=== PATIENT | female | born 2000 | race Caucasian/White ===

== ENCOUNTER 2020-11-15 08:53 | Outpatient (REF) | payer BC, SELFPAY ==
[2020-11-15 11:19] LABS: MANUAL DIFF FLAG NO
[2020-11-15 11:37] LABS: Basophils Absolute Auto 0.1 X10*3/uL (0.0-0.2); Basophils Percent Auto 0.6 % (0-2); Eosinophils Absolute Auto 0.1 X10*3/uL (0.0-0.4); Eosinophils Percent Auto 0.8 % (0-4); Hematocrit 44.3 % (37-47); Hemoglobin 14.4 g/dl (12.0-16.0); Imm Gran Abs Auto 0.03 X10*3/uL (0.00-0.03); Imm Gran Pct Auto 0.3 % (0.0-0.4); Lymphocytes Absolute Auto 2.3 X10*3/uL (1.2-4.9); Mean Corpuscular HGB Conc 32.5 g/dl (31.0-35.0); Mean Corpuscular Hemoglobin 29.5 pg (27.0-33.0); Mean Corpuscular Volume 90.8 fL (80-98); Mean Platelet Volume 10.3 fL (9.4-12.3); Monocytes Absolute Auto 0.7 X10*3/uL (0.1-1.2); Neutrophils Absolute Auto 5.8 X10*3/uL (2.0-8.3); Neutrophils Percent Auto 64.3 % (45-73); Platelet Count 331 X10*3/uL (160-400); Red Blood Count 4.88 X10*6/uL (4.20-5.50); Red Cell Distribution Width 12.2 % (11.0-16.0)
[2020-11-15 12:06] LABS: Alanine Aminotransferase 19 U/L (0-31); Albumin Level 4.4 g/dL (3.5-5.0); Alkaline Phosphatase 51 U/L (39-117); Anion Gap 13 (12-20); Aspartate Amino Transferase 15 U/L (5-31); Bilirubin Total 0.2 mg/dL (0.0-1.0); Blood Urea Nitrogen 10 mg/dL (9-16); Calcium 9.2 mg/dL (8.4-10.2); Carbon Dioxide 28 mmol/L (22-29); Chloride 104 mmol/L (96-108); Cholesterol 212 mg/dL; Estimated Glomerular Filt Rate > 60; Glucose Fasting 80 mg/dL (60-99); HDL Cholesterol 36 mg/dL; LDL Cholesterol Calculated 144 mg/dl; Potassium 4.9 mmol/L (3.3-5.1); Sodium 140 mmol/L (135-145); Triglycerides 161 mg/dL
[2020-11-15 12:13] LABS: TSH reflex Free T4 1.03 uIU/mL (0.32-4.0)
== END 2020-11-15 08:54 | disposition home or self-care (01) ==
LOC: HO.HMGCLDS 08:53
PROVIDERS: PCP Internal Medicine; Visit Provider Internal Medicine
DX: Z00.01 Encounter for general adult medical examination with abnormal findings (principal); E66.9 Obesity, unspecified
CPT/HCPCS: 36415; 80053; 80061; 84443; 85025

== ENCOUNTER 2021-05-23 14:01 | Outpatient (REF) | payer BC, SELFPAY | END 2021-05-23 14:02 | disposition home or self-care (01) | LOC: HO.LNP 14:01 | PROVIDERS: Visit Provider Physician Assistant | DX: Z20.822 Contact with and (suspected) exposure to COVID-19 (principal); J01.10 Acute frontal sinusitis, unspecified | CPT/HCPCS: U0003; U0005 ==

== ENCOUNTER 2022-12-16 13:00 | Outpatient (REF) | payer BC, SELFPAY ==
[2022-12-16 14:24] LABS: Hematocrit 42.5 % (37.0-47.0); Hemoglobin 13.7 g/dl (12.0-16.0); Mean Corpuscular HGB Conc 32.2 g/dl (31.0-35.0); Mean Corpuscular Hemoglobin 28.6 pg (27.0-33.0); Mean Corpuscular Volume 88.7 fL (80.0-98.0); Mean Platelet Volume 10.3 fL (9.4-12.3); Platelet Count 367 X10*3/uL (160-400); Red Blood Count 4.79 X10*6/uL (4.20-5.50); Red Cell Distribution Width 12.3 % (11.0-16.0); White Blood Count 26.4 X10*3/uL (4.8-10.8)
[2022-12-16 15:02] LABS: Alanine Aminotransferase 11 U/L (0-31); Albumin Level 4.5 g/dL (3.5-5.0); Alkaline Phosphatase 57 U/L (39-117); Anion Gap 14 (12-20); Aspartate Amino Transferase 12 U/L (5-31); Bilirubin Direct 0.2 mg/dL (0.0-0.5); Bilirubin Total 0.8 mg/dL (0.0-1.0); Blood Urea Nitrogen 8 mg/dL (9-16); Calcium 9.6 mg/dL (8.4-10.2); Carbon Dioxide 27 mmol/L (22-29); Chloride 102 mmol/L (96-108); Estimated Glomerular Filt Rate > 60; Glucose Random 113 mg/dL (60-115); Potassium 4.4 mmol/L (3.3-5.1); Sodium 139 mmol/L (135-145); Total Protein 7.4 g/dL (6.5-8.0)
[2022-12-16 15:10] LABS: Influenza A PCR NEGATIVE (Negative); Influenza B PCR NEGATIVE (Negative); Resp Syncy Virus RNA Qual PCR NEGATIVE (Negative); SARS COV2 PCR INHOUSE NEGATIVE (Negative)
[2022-12-16 16:14] LABS: Erythrocyte Sedimentation Rate 59 MM/HR (0-20)
== END 2022-12-16 13:01 | disposition home or self-care (01) ==
LOC: HO.HMGCLDS 13:00
PROVIDERS: Visit Provider Internal Medicine
DX: Z20.822 Contact with and (suspected) exposure to COVID-19 (principal); R50.9 Fever, unspecified
CPT/HCPCS: 0241U; 36415; 80048; 80076; 85027; 85652

== ENCOUNTER 2022-12-18 12:59 | Outpatient (REF) | payer BC, SELFPAY ==
[2022-12-18 14:13] LABS: Hematocrit 38.4 % (37.0-47.0); Hemoglobin 12.4 g/dl (12.0-16.0); Mean Corpuscular HGB Conc 32.3 g/dl (31.0-35.0); Mean Corpuscular Hemoglobin 28.8 pg (27.0-33.0); Mean Corpuscular Volume 89.1 fL (80.0-98.0); Mean Platelet Volume 10.2 fL (9.4-12.3); Platelet Count 339 X10*3/uL (160-400); Red Blood Count 4.31 X10*6/uL (4.20-5.50); Red Cell Distribution Width 12.4 % (11.0-16.0); White Blood Count 11.9 X10*3/uL (4.8-10.8)
[2022-12-18 14:30] LABS: Anion Gap 15 (12-20); Blood Urea Nitrogen 10 mg/dL (9-16); Calcium 9.2 mg/dL (8.4-10.2); Carbon Dioxide 27 mmol/L (22-29); Chloride 103 mmol/L (96-108); Estimated Glomerular Filt Rate > 60; Glucose Random 109 mg/dL (60-115); Potassium 4.7 mmol/L (3.3-5.1); Sodium 140 mmol/L (135-145)
[2022-12-18 15:02] LABS: Erythrocyte Sedimentation Rate 81 MM/HR (0-20)
== END 2022-12-18 13:00 | disposition home or self-care (01) ==
LOC: HO.HMGCLDS 12:59
PROVIDERS: PCP Internal Medicine; Visit Provider Internal Medicine
DX: R50.9 Fever, unspecified (principal)
CPT/HCPCS: 36415; 80048; 85027; 85652

== ENCOUNTER 2024-02-22 11:25 | Outpatient (AMB) | payer BC, SELFPAY ==
[2024-02-22 11:30] VITALS: BP 138/74; PULSE 75; O2SAT 98; BMI 34.0
--- NOTE | 2024-02-22 11:30 | MHC.PC.OV ---
Vital Signs 02/22/24 11:30 Height 5 ft 3 in Weight 192 lb 2 oz BMI 34.0 BP 138/74 Blood Pressure Location Rt brachial Position Sitting Pulse 75 Pulse Source Pulse Oximeter Pulse Oximetry (%) 98 Oxygen Delivery Method Room Air Intake Visit Reasons: Annual PE Allergies No Known Allergies Allergy (Verified 02/22/24 11:31) Medication List - Last Reconciled 02/22/24 by Carline Pablo MD No Known Home Meds Tobacco use date assessed: 02/22/24 Dental Screening Dental Screen Date: 02/22/24 Did you have a dental visit in the last 12 months?: Yes Did you have a dental problem in the last 6 months where you did not have access to dental care?: No Was dental information given to patient?: Patient has dentist HPI Annual PE HPI Details Patient is 23-year-old female came in today for physical examination She is suffering from constipation alternating with diarrhea She says that out of 14 days 10 days she has pain when she move her bowels And she has also noticed that her stools are ribbon like now Patient would like to have referral to gastroenterology which I have placed for the patient to be seen urgently Lab order placed to be done fasting She already have OBGYN at [facility] Patient is trying to lose weight as well PFSH Family History Father Diabetes Mother Diabetes Cancer Paternal Grandmother Cancer Social History Housing: House Alcohol intake: current Alcohol intake frequency: a few times a month Patient Tobacco Use Status: Never used Tobacco e-Cigarette/Vaping Use: Never Used Current occupational status: employed Cognitive needs: No Hearing needs: No Vision needs: No Questionnaire PHQ-9 Over the last 2 weeks, how often have you been bothered by any of the following problems? 1. Little interest or pleasure in doing things: several days 2. Feeling down, depressed, or hopeless: not at all 3. Trouble falling or staying asleep, or sleeping too much: not at all 4. Feeling tired or having little energy: several days 5. Poor appetite or overeating: nearly every day 6. Feeling bad about yourself - or that you are a failure or have let yourself or your family down: not at all 7. Trouble concentrating on things, such as reading the newspaper or watching television: several days 8. Moving or speaking so slowly that other people could have noticed. Or the opposite - being so fidgety or restless that you have been moving around a lot more than usual: not at all 9. Thoughts that you would be better off or of hurting yourself in some way: not at all Total score: 6 Depression Screening Interpretation: Negative Depression Screening Done: Yes 46731 - PHQ-9 Billing: Yes Source: Developed by Drs. Nic Hernandez, Renetta Thomas, Jason Hamilton and colleagues, with an educational yolie from [employer]. Thrive Questionnaire Date Thrive assessed: 02/22/24 I am a: Patient What is your living situation today?: I have a steady place to live Within the past 12 months, did the food you bought not last and you didn't have the money to get more?: Never true Within the past 12 months, did you worry whether your food would run out before you got money to buy more?: Never true Do you have trouble paying for medicines?: No Do you have trouble getting transportation to medical appointments?: No Do you have trouble paying your heating and electricity bill?: No Do you have trouble taking care of your child, family member or friend?: No Do you have trouble with day-to-day activities such as bathing, preparing meals, shopping, managing finances, etc.?: No Are you currently unemployed and looking for a job?: No Are you interested in more education?: Yes Please select the resources that you would like help with: None Currently or been in a relationship where the following occur: No concerns reported THRIVE Score: 0 AUDIT C Alcohol Use Questionnaire (AUDIT-C) 1. How often do you have a drink containing alcohol?: 2-3 times a week 2. How many drinks containing alcohol do you have on a typical day when you are drinking?: 5 or 6 3. How often do you have six or more drinks on one occasion?: Weekly Total Score: 8 Score Reviewed/Action Taken: No (Patient left before we chance to talk about that) SAMANTHA-7 AMB Questionnaire SAMANTHA-7 Date SAMANTHA - 7 assessed: 02/22/24 Feeling nervous, anxious, or on edge: 3 = Nearly every day Not being able to stop or control worryin = Nearly every day Worrying too much about different things: 1 = Several days Trouble relaxin = More than half the days Being so restless that it is hard to sit still: 0 = Not at all Becoming easily annoyed or irritable: 1 = Several days Feeling afraid as if something awful might happen: 2 = More than half the days Total SAMANTHA-7 score (0-4 normal; 5-9 mild; 10-14 moderate; 15-21 severe): 12 Source: Developed by Drs. Nic Hernandez, Renetta Thomas, Jason Hamilton and colleagues, with an educational yolie from [employer]. SAMANTHA-7 Assessment Billing SAMANTHA-7 Assessment Tool: SAMANHTA-7 Assessment 78340 Review of Systems Const Denies chills, Denies fever(s) and Denies headache(s) Eyes Denies blurry vision ENT Denies headache(s), Denies nasal discharge, Denies nasal obstruction, Denies odynophagia and Denies sinus pain Card Denies chest pain at rest and Denies chest pain with activity Resp Denies cough and Denies hemoptysis GI Denies odynophagia, Denies vomiting and Denies hematemesis Reports as per HPI Musc Denies abnormal gait Skin/Breast Reports as per HPI Neuro Denies Neuro-related abnormal movements, Denies Abnormal speech present, Denies abnormal gait, Denies headache(s) and Denies Sensory deficit (Neuro) Psych Denies mood swings and Denies paranoia Endo Reports as per HPI Kyle/Lymph Reports as per HPI Aller/Immun Reports as per HPI Physical exam (Primary Care) Vital Signs: Last Vital Signs Pulse 75 02/22/24 11:30 BP 138/74 02/22/24 11:30 Pulse Ox 98 02/22/24 11:30 Oxygen Delivery Method Room Air 02/22/24 11:30 BMI result Body Mass Index 34.0 Tobacco/Smoking Status: Tobacco use Status Tobacco use date assessed 02/22/24 02/22/24 11:31 Patient Tobacco Use Status Never used Tobacco 02/22/24 11:31 e-Cigarette/Vaping Use Never Used 02/22/24 11:31 PHQ-9: PHQ-9 Score PHQ-9: Total score 6 02/22/24 12:14 Depression Screening Interpretation: Negative Thrive Assessment: Date of Thrive Assessment Date Thrive assessed 02/22/24 02/22/24 12:14 Currently or been in a relationship where the following occur: No concerns reported Const General: cooperative, comfortable and no acute distress Orientation/consciousness: patient oriented x3 HENMT Head: Yes normocephalic and Yes atraumatic Eyes General: appearance normal, both eyes and all related structures Pupils: Equal, round and reactive pupils present EOM: EOMs intact bilaterally Neck Neck: Yes supple and No lymphadenopathy Thyroid: Thyroid normal Lymphatic: no lymphadenopathy noted Resp Effort & Inspection: normal respiratory effort and able to speak in complete sentences Auscultation: clear to auscultation bilaterally Cardio Heart sounds: S1 normal heart sound present and S2 normal heart sound present GI Palpation (GI): Soft to palpation and nontender Auscultation: normal bowel sounds General: Yes no CVA tenderness Back/Spine/Pelvis Back: no CVA tenderness Skin General skin exam: elasticity normal and turgor normal Neuro General: patient oriented x3 and gait normal Cranial nerves: Yes Equal, round and reactive pupils present Speech: No Abnormal speech present Sensory Exam: No Sensory deficit (Neuro) Coordination: tandem gait normal and Romberg test negative Extrem General: Yes normal exam except as noted and No edema Assessment and Plan Assessment & Plan (1) Encounter for general adult medical examination with abnormal findings: Code(s): Z00.01 - Encounter for general adult medical examination with abnormal findings (2) Change in stool caliber: Code(s): R19.5 - Other fecal abnormalities (3) Obesity (BMI 30.0-34.9): Code(s): E66.9 - Obesity, unspecified (4) Leukocytosis: Code(s): D72.829 - Elevated white blood cell count, unspecified Qualifiers: Leukocytosis type: unspecified Qualified Code(s): D72.829 - Elevated white blood cell count, unspecified Plan Patient is 23-year-old female came in today for physical examination She is suffering from constipation alternating with diarrhea She says that out of 14 days 10 days she has pain when she move her bowels And she has also noticed that her stools are ribbon like now Patient would like to have referral to gastroenterology which I have placed for the patient to be seen urgently Lab order placed to be done fasting , last time she had labs her white count was elevated She already have OBGYN at [facility] Patient is trying to lose weight as well Orders: Orders Complete Blood Count Auto Diff Today D72.829 - Elevated white blood cell count, unspecified, E66.9 - Obesity, unspecified, Z00.01 - Encounter for general adult medical examination with abnormal findings Comprehensive [employer]. Panel Fast Today D72.829 - Elevated white blood cell count, unspecified, E66.9 - Obesity, unspecified, Z00.01 - Encounter for general adult medical examination with abnormal findings Lipid Panel Today D72.829 - Elevated white blood cell count, unspecified, E66.9 - Obesity, unspecified, Z00.01 - Encounter for general adult medical examination with abnormal findings Vitamin D 25-OH (D2 and D3) Today D72.829 - Elevated white blood cell count, unspecified, E66.9 - Obesity, unspecified, Z00.01 - Encounter for general adult medical examination with abnormal findings TSH reflex Free T4 Today D72.829 - Elevated white blood cell count, unspecified, E66.9 - Obesity, unspecified, Z00.01 - Encounter for general adult medical examination with abnormal findings Referrals Gastroenterology Referral R19.5 - Other fecal abnormalities Coding Level of Care Code Est Pt Level 3 (48495) Est Pt Prev Care 18-39y(66067) Diagnoses Encounter for general adult medical examination with abnormal findings Z00.01 Change in stool caliber R19.5 Obesity (BMI 30.0-34.9) E66.9 Leukocytosis, unspecified type D72.829 Leukocytosis type: unspecified Additional Codes SAMANTHA-7 Assessment Billing - SAMANTHA-7 Assessment Tool: SAMANTHA-7 Assessment 29779 ([id number])
== END 2024-02-22 11:53 | disposition home or self-care (01) ==
PROVIDERS: PCP Internal Medicine; Visit Provider Internal Medicine
DX: Z00.01 Encounter for general adult medical examination with abnormal findings (principal); R19.5 Other fecal abnormalities; Z68.34 Body mass index [BMI] 34.0-34.9, adult; E66.9 Obesity, unspecified; D72.829 Elevated white blood cell count, unspecified
CPT/HCPCS: 99213; 99395

== ENCOUNTER 2024-04-13 07:09 | Outpatient (REF) | payer SELFPAY ==
[2024-04-13 10:01] LABS: MANUAL DIFF FLAG NO
[2024-04-13 10:04] LABS: Basophils Percent Auto 0.5 % (0-2); Eosinophils Absolute Auto 0.1 X10*3/uL (0.0-0.4); Hematocrit 41.4 % (37.0-47.0); Hemoglobin 13.8 g/dl (12.0-16.0); Imm Gran Abs Auto 0.03 X10*3/uL (0.00-0.03); Imm Gran Pct Auto 0.4 % (0.0-0.4); Lymphocytes Absolute Auto 2.8 X10*3/uL (1.2-4.9); Lymphocytes Percent Auto 36.4 % (20-40); Mean Corpuscular HGB Conc 33.3 g/dl (31.0-35.0); Mean Corpuscular Hemoglobin 29.4 pg (27.0-33.0); Mean Corpuscular Volume 88.1 fL (80.0-98.0); Mean Platelet Volume 10.3 fL (9.4-12.3); Monocytes Absolute Auto 0.6 X10*3/uL (0.1-1.2); Monocytes Percent Auto 7.9 % (2-11); Neutrophils Absolute Auto 4.2 x10*3/uL (2.0-8.3); Neutrophils Percent Auto 53.8 % (45-73); Platelet Count 318 X10*3/uL (160-400); Red Cell Distribution Width 12.4 % (11.0-16.0); White Blood Count 7.7 X10*3/uL (4.8-10.8)
[2024-04-13 10:38] LABS: Alanine Aminotransferase 13 U/L (0-31); Albumin Level 4.3 g/dL (3.5-5.0); Alkaline Phosphatase 45 U/L (39-117); Anion Gap 15 (12-20); Aspartate Amino Transferase 14 U/L (5-31); Bilirubin Total 0.6 mg/dL (0.0-1.0); Blood Urea Nitrogen 10 mg/dL (9-16); Calcium 9.7 mg/dL (8.4-10.2); Carbon Dioxide 22 mmol/L (22-29); Chloride 109 mmol/L (96-108); Cholesterol 171 mg/dL (<200); Estimated Glomerular Filt Rate > 60; Glucose Fasting 90 mg/dL (60-99); HDL Cholesterol 34 mg/dL (>40); LDL Cholesterol Calculated 118 mg/dL (<100); Potassium 4.5 mmol/L (3.3-5.1); Sodium 141 mmol/L (135-145); Total Protein 7.3 g/dL (6.5-8.0); Triglycerides 97 mg/dL (<150)
[2024-04-13 10:40] LABS: TSH reflex Free T4 1.17 uIU/mL (0.32-4.0)
[2024-04-18 16:48] LABS: Vitamin D 25-OH, D2 <4 ng/mL; Vitamin D 25-OH, D3 19 ng/mL; Vitamin D 25-OH, Total 19 ng/mL (30-100)
== END 2024-04-13 07:10 | disposition home or self-care (01) ==
LOC: HO.HMGCLDS 07:09
PROVIDERS: PCP Internal Medicine; Visit Provider Internal Medicine
DX: Z00.01 Encounter for general adult medical examination with abnormal findings (principal); E66.9 Obesity, unspecified; D72.829 Elevated white blood cell count, unspecified
CPT/HCPCS: 36415; 80053; 80061; 82306; 84443; 85025

== ENCOUNTER 2024-06-02 14:31 | Outpatient (AMB) | payer OTHER, SELFPAY ==
--- NOTE | 2024-06-02 14:34 | MHC.OFFVIS ---
Vital Signs 06/02/24 14:38 Height 5 ft 3 in Weight 194 lb 0.108 oz BMI 34.4 Blood Pressure Location Lt brachial Position Sitting Intake Visit Reasons: Other Fecal Abnormalities Intake Note: Gi presents in the office as a new patient for other fecal abnormalities. CC: She states that she is here today due to diarrhea. She states that she has been having symptoms that are on and off occurring for a year. Today is a bad day. She will have sharp stinging pains in her abdomen, cramping as well in the abdomen - she has the frequent urge to have a BM, Lower stomach pains with nausea that occurs afterwards and her stools seem to be long and thin. She has noticed multiple external hemorrhoids and occasional blood with itching in the rectum. She also has a list of other symptoms that has been occurring for her. Shredding Specialist Required: No Allergies No Known Allergies Allergy (Verified 06/02/24 14:40) HPI Comments Details: 24 y.o F who is here for GI issues. Reports diffuse abd pain assoc with change in bowel habits that varies from diarrhea to constipation. Has urgency even when shes constipated. Occ sees blood in stool. Toney with hard stool. With loose BMs goes 5 times a day. When constipated goes 2-3 times a day. Also has to splint and digitalise to fully evacuate. Ongoing x 1 year. No smoking. EtOH consumption: 2 glasses once a week. Diet: Yest: BF: apple banana. Lunch: caesar salad, PB&J sandwich, applesauce. Dinner: chicken pesto pasta. Fam hx: no hx of IBD, colon cancer. PFSH Family History Father Diabetes Mother Diabetes Cancer Paternal Grandmother Cancer Social History Housing: House Alcohol intake: current Alcohol intake frequency: a few times a month Patient Tobacco Use Status: Never used Tobacco e-Cigarette/Vaping Use: Never Used Current occupational status: employed Cognitive needs: No Hearing needs: No Vision needs: No Review of Systems Const All systems reviewed & are unremarkable except as noted in HPI and below Physical Exam Vital Signs: BMI result Body Mass Index 34.4 No apparent distress Nonicteric Abdomen soft, nondistended rectal: small ext hemorrhoid, no fissure, large internal hemorrhoids Alert and oriented x3, normal gait Assessment & Plan Assessment & Plan (1) Constipation: Code(s): K59.00 - Constipation, unspecified Category: Medical (2) Bright red rectal bleeding: Code(s): K62.5 - Hemorrhage of anus and rectum Category: Medical (3) Change in stool caliber: Code(s): R19.5 - Other fecal abnormalities Category: Medical (4) Fecal urgency: Code(s): R15.2 - Fecal urgency Category: Medical Plan Ddx include IBD, IBS, dysyngeric defecation. Plan: - Labs as below - XR defecography - Avoid constipation and straining. Can take OTC senna or miralax to manage constipation. - avoid lifting heavy weights - increase hydration and fiber intake Close follow up in 4 weeks to review response and indication for colo Orders: Orders Complete Blood Count no Diff 06/02/24 R19.5 - Other fecal abnormalities, K62.5 - Hemorrhage of anus and rectum Comprehensive Met. Panel 06/02/24 R19.5 - Other fecal abnormalities, K62.5 - Hemorrhage of anus and rectum C Reactive Protein 06/02/24 R19.5 - Other fecal abnormalities, K62.5 - Hemorrhage of anus and rectum Calprotectin, Fecal 06/07/24 R19.5 - Other fecal abnormalities, K62.5 - Hemorrhage of anus and rectum Hepatitis A IgG 06/02/24 R19.5 - Other fecal abnormalities, K62.5 - Hemorrhage of anus and rectum Hepatitis B Core Antibody 06/02/24 R19.5 - Other fecal abnormalities, K62.5 - Hemorrhage of anus and rectum Hepatitis B Surface Antibody 06/02/24 R19.5 - Other fecal abnormalities, K62.5 - Hemorrhage of anus and rectum Hepatitis B Surface Antigen 06/02/24 R19.5 - Other fecal abnormalities, K62.5 - Hemorrhage of anus and rectum Hepatitis B Viral DNA Qn 06/02/24 R19.5 - Other fecal abnormalities, K62.5 - Hemorrhage of anus and rectum Hepatitis C Antibody 06/02/24 R19.5 - Other fecal abnormalities, K62.5 - Hemorrhage of anus and rectum XR defecography 06/02/24 K59.00 - Constipation, unspecified TSH reflex Free T4 06/02/24 R19.5 - Other fecal abnormalities, K62.5 - Hemorrhage of anus and rectum Transglutaminase IgA 06/02/24 R19.5 - Other fecal abnormalities, K62.5 - Hemorrhage of anus and rectum Immunoglobulin A 06/02/24 R19.5 - Other fecal abnormalities, K62.5 - Hemorrhage of anus and rectum Immunoglobulin G 06/02/24 R19.5 - Other fecal abnormalities, K62.5 - Hemorrhage of anus and rectum HIV Ab/Ag 06/02/24 R19.5 - Other fecal abnormalities, K62.5 - Hemorrhage of anus and rectum Coding Level of Care Code New Pt Level 4 (86263) Complex EM visit Add On G2211 Diagnoses Constipation K59.00 Bright red rectal bleeding K62.5 Change in stool caliber R19.5 Fecal urgency R15.2
[2024-06-02 14:38] VITALS: BMI 34.4
== END 2024-06-02 15:25 | disposition home or self-care (01) ==
PROVIDERS: PCP Internal Medicine; Visit Provider Internal Medicine
DX: K59.00 Constipation, unspecified (principal); K62.5 Hemorrhage of anus and rectum; R19.5 Other fecal abnormalities; R15.2 Fecal urgency
CPT/HCPCS: 99204; G2211

== ENCOUNTER 2024-06-07 08:14 | Outpatient (REF) | payer OTHER, SELFPAY ==
[2024-06-13 23:13] LABS: Calprotectin, Fecal 9 mcg/g
== END 2024-06-07 08:15 | disposition home or self-care (01) ==
LOC: HO.LNP 08:14
PROVIDERS: Visit Provider Internal Medicine
DX: R19.5 Other fecal abnormalities (principal); K62.5 Hemorrhage of anus and rectum
CPT/HCPCS: 83993

== ENCOUNTER 2024-07-07 15:36 | Outpatient (AMB) | payer OTHER, SELFPAY ==
--- NOTE | 2024-07-07 15:43 | MHC.OFFVIS ---
Vital Signs 07/07/24 15:44 Height 5 ft 3 in Weight 198 lb 6.656 oz BMI 35.1 BP 128/67 Blood Pressure Location Lt brachial Position Sitting Pulse 64 Intake Visit Reasons: 4 week follow up Intake Note: Gi presents in the office as a 4 week follow up. CC: She states that she is not having any concerns at this time. Allergies No Known Allergies Allergy (Verified 06/02/24 14:40) HPI Comments Details: 24 y.o F who is here for GI issues. 06/02/24: Reports diffuse abd pain assoc with change in bowel habits that varies from diarrhea to constipation. Has urgency even when shes constipated. Occ sees blood in stool. Toney with hard stool. With loose BMs goes 5 times a day. When constipated goes 2-3 times a day. Also has to splint and digitalise to fully evacuate. Ongoing x 1 year. No smoking. EtOH consumption: 2 glasses once a week. Diet: Yest: BF: apple banana. Lunch: caesar salad, PB&J sandwich, applesauce. Dinner: chicken pesto pasta. Fam hx: no hx of IBD, colon cancer. 07/07/24: Here for follow up. Reports resolution of abd pain as long as stays away from fried food. If she does take fatty food, has frequent cramping and bloating wihitn 20-30 mins. Stool is now more formed and soft, no straining involved. Still has to digitalize every other day. Has not heard re defecography from [facility] [place]. Will follow up on it. No urgency. No blood in stool. Has incorporated more fiber through diet. Not taking supplement. Does take miralax three times a week. Labs reviewed which are all normal. Not immune to HBV. [facility] Family History Father Diabetes Mother Diabetes Cancer Paternal Grandmother Cancer Social History Housing: House Alcohol intake: current Alcohol intake frequency: a few times a month Patient Tobacco Use Status: Never used Tobacco e-Cigarette/Vaping Use: Never Used Current occupational status: employed Cognitive needs: No Hearing needs: No Vision needs: No Review of Systems Const All systems reviewed & are unremarkable except as noted in HPI and below Physical Exam Vital Signs: Last Vital Signs Pulse 64 07/07/24 15:44 BP 128/67 07/07/24 15:44 BMI result Body Mass Index 35.1 No apparent distress Nonicteric Abdomen soft, nondistended Alert and oriented x3, normal gait Immunizations Engerix-B (PF) 20 mcg/mL intramuscular suspension Performing Provider: Arianne Zuniga MD Performing Location: [facility] [place] [facility] Administered by: Diana Martinez RN on 07/07/24 16:08 Dose Route Admin Location Dispensed Lot Number Expiration Date [facility] Security Assurance Specialist 1 mL IM Left Deltoid 1 mL [id number] 07/23/26 70024-065-50 [employer] VIS Given Date VIS Provided VIS Publication Date 07/07/24 Single Vaccine 22 Eligibility Eligibility Date Funding Source Not [facility] Eligible 07/07/24 Private Assessment & Plan Assessment & Plan (1) Constipation: Code(s): K59.00 - Constipation, unspecified Category: Medical (2) Bright red rectal bleeding: Code(s): K62.5 - Hemorrhage of anus and rectum Category: Medical (3) Change in stool caliber: Code(s): R19.5 - Other fecal abnormalities Category: Medical (4) Fecal urgency: Code(s): R15.2 - Fecal urgency Category: Medical (5) Hepatitis B vaccination administered at current visit: Code(s): Z23 - Encounter for immunization Category: Medical Plan Has had excellent response to fiber intake and PRN use of miralax with complete resolution of all sx except need to digitalise for stool. Defecography pending - will follow up. In terms of post prandial pain after greasy food, will check US ABd to r/o symptomatic gallstones. Pt advised to send us a portal msg once she has an update from [facility] for defecography. Pt not immune to HBV and agreeable to starting series today. RN to administer. Orders: Orders US abdomen complete Today R10.13 - Epigastric pain Coding Level of Care Code Est Pt Level 4 (39560) Diagnoses Constipation K59.00 Bright red rectal bleeding K62.5 Change in stool caliber R19.5 Fecal urgency R15.2 Hepatitis B vaccination administered at current visit Z23
[2024-07-07 15:44] VITALS: BP 128/67; PULSE 64; BMI 35.1
== END 2024-07-07 16:31 | disposition home or self-care (01) ==
PROVIDERS: PCP Internal Medicine; Visit Provider Internal Medicine
DX: K59.00 Constipation, unspecified (principal); K62.5 Hemorrhage of anus and rectum; R19.5 Other fecal abnormalities; R15.2 Fecal urgency; Z23 Encounter for immunization
CPT/HCPCS: 99214

== ENCOUNTER → 2024-07-07 15:36 | Outpatient (BNVA) | payer OTHER, SELFPAY | PROVIDERS: PCP Internal Medicine; Visit Provider Internal Medicine | DX: K59.00 Constipation, unspecified (principal); K62.5 Hemorrhage of anus and rectum; R19.5 Other fecal abnormalities; R15.2 Fecal urgency; Z23 Encounter for immunization | CPT/HCPCS: 90471; 90746 ==

== ENCOUNTER 2024-07-28 07:49 | Outpatient (REF) | payer OTHER, SELFPAY ==
--- OUTSIDE RECORDS SUMMARY | 2024-07-28 07:51 | XMS_ITS | Patient Health Record ---
Author Organization [facility] [address] Address [address] [place] [address] Care Team Providers Care Outdoor Landscape Architect Name Role Phone [facility] HUNT, [facility] Provider Ford Ching Unavailable [phone] Allergies No Known Allergies Reason For Referral No Information Social History Tobacco Use: Social History Observation Description Date Details (start date - stop date) Never Smoker NA - NA Tobacco Use/Smoking Question Answer Notes Are you a: nonsmoker Alcohol Screen Question Answer Notes Did you have a drink contain ing alcohol in the past year? Yes How often did you have a dri nk containing alcohol in the past year? 2 to 3 times a week (3 points) Points 3 Interpretation Positive Tobacco use other than smoking: Question Answer Notes Are you an other tobacco user? No Plan Of Treatment Pending Test Test Name Order Date X ray : Foot, left 3V 06/08/2023 Insurance Providers Payer Name Payer Address Payer Phone Subscriber Number Group Number Insured Name Patient Relationship to Insured Coverage Start Date Coverage End Date [facility] [id number] [place] [address] [id number] Yayo Quesada Child - Insured has Financial Responsibility Medical (General) History Medical History History ICD Code Back,Hip,and Knee pain Broken bones covid-19 Headaches Numbness Warts Joint implants/screws Surgical History Surgery Date(Month/Year) pelvic ORIF 2015
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
== END 2024-07-28 07:50 | disposition home or self-care (01) ==
LOC: HO.US 07:49
PROVIDERS: PCP Internal Medicine; Visit Provider Internal Medicine
DX: R10.13 Epigastric pain (principal)
CPT/HCPCS: 76700

== ENCOUNTER 2024-08-04 15:36 | Outpatient (AMB) | payer OTHER, SELFPAY ==
--- NOTE | 2024-07-07 16:05 | AM.OFFVISNUR ---
Intake Visit Reasons: Hep B #2 Allergies No Known Allergies Allergy (Verified 06/02/24 14:40)
--- OUTSIDE RECORDS SUMMARY | 2024-08-04 15:38 | XMS_ITS | Patient Health Record ---
Author Organization [facility] [place] Address [address] [place] [address] Care Team Providers Care Name Plate Stamper Name Role Phone Samy HUNT, [facility] Primary [facility] Provider Ford Ching Unavailable [phone] Allergies No Known Allergies Reason For Referral [...] Insured Coverage Start Date Coverage End Date [facility] [address] [place] [address] [id number] Yayo Quesada Child - Insured has Financial Responsibility Medical (General) History Medical History History ICD Code Back,Hip,and Knee pain Broken bones covid-19 Headaches Numbness Warts Joint implants/screws Surgical History Surgery Date(Month/Year) pelvic ORIF 2015
== END 2024-08-04 15:48 | disposition home or self-care (01) ==
PROVIDERS: PCP Internal Medicine; Visit Provider Internal Medicine
DX: Z23 Encounter for immunization (principal)

== ENCOUNTER → 2024-08-04 15:36 | Outpatient (BNVA) | payer OTHER, SELFPAY | PROVIDERS: PCP Internal Medicine; Visit Provider Internal Medicine | DX: Z23 Encounter for immunization (principal) | CPT/HCPCS: 90471; 90746 ==

== ENCOUNTER 2024-09-26 12:40 | Outpatient (AMB) | payer OTHER, SELFPAY ==
[2024-09-26 12:44] VITALS: BP 128/74; PULSE 67; TEMP 36.6; O2SAT 98; BMI 36.8
--- NOTE | 2024-09-26 12:44 | A.OFFPC_ITS ---
Vital Signs 09/26/24 12:44 Height 5 ft 3 in Weight 208 lb BMI 36.8 BP 128/74 Blood Pressure Location Rt brachial Position Sitting Pulse 67 Pulse Source Pulse Oximeter Temp 97.9 F Temp Source Oral Pulse Oximetry (%) 98 Intake Visit Reasons: heart palpitations Accompanied by: Self / Same As Patient Allergies No Known Allergies Allergy (Verified 09/26/24 12:45) Medication List - Last Reconciled 09/26/24 by Carline Pablo MD No Known Home Meds Tobacco use date assessed: 09/26/24 Dental Screening Dental Screen Date: 09/26/24 Did you have a dental visit in the last 12 months?: Yes Did you have a dental problem in the last 6 months where you did not have access to dental care?: No Was dental information given to patient?: Patient has dentist HPI heart palpitations HPI Details The patient is a 24-year-old female presenting with heart palpitations and chest pain. - Reports heart palpitations initially s evere, now occurring as multiple episodes per day, brief in duration but intense. - Describes recent chest pain, sharp in nature, at times accompanied by dull pain and exacerbated by deep breathing leading to tightness. - today's evaluation indicated normal EK G findings; Holter monitoring is advised for further assessment. Order placed - Past episodes of perceiving heartbeats in ears, possibly related to dietary habits during a trip, did not raise significant concerns in previous consults. - Management for known GERD has been dis cussed, emphasizing dietary adjustments to alleviate symptoms. - No thyroid malfunction as previously e valuated; continuing vitamin D supplementation for deficiency management. Problem List - Heart palpitations - chest pain - possible Gastroesophageal reflux disea se (GERD) - Vitamin D deficiency - obesity with BMI of 36.8 Patient Instructions - Undergo Holter monitoring for further cardiac rhythm evaluation. - Avoid spicy, acidic, and fried foods t o help manage reflux symptoms. - Continue with vitamin D supplementatio n as previously prescribed. - Be vigilant about dietary choices that could impact symptoms, such as avoiding coffee and citrus juices. - Monitor for any escalation in symptoms or new developments, and seek prompt medical review if necessary. Review of Systems - General: No fever no chills - Neurological: No headaches no dizziness - Ear nose throat: No sore throat no hearing difficulty no ear pain - Cardiovascular: No syncope, no chest pain, no palpitations - Gastrointestinal: No nausea vomiting or diarrhea - Endocrine: No polyuria polydipsia no heat intolerance - Genitourinary: No dysuria , no blood in urine Physical Exam General: No acute distress HEENT: No acute findings Neck: Supple Respiratory system: Able to talk in full sentences, no audible wheeze cardiovascular: S1-S2 regular in rate and rhythm, reports heart palpitations and fluttering Gastrointestinal: Reports sharp and dull pain, possibly due to reflux Extremities: No new findings SPEECH LANGUAGE SPECIALIST: Alert awake oriented x3 motor sensory intact Skin: Normal tur[facility] History No pertinent past surgical history Family History Father Diabetes Mother Diabetes Cancer Paternal Grandmother Cancer Social History Housing: House Alcohol intake: current Alcohol intake frequency: a few times a month Patient Tobacco Use Status: Never used Tobacco e-Cigarette/Vaping Use: Never Used Current occupational status: employed Cognitive needs: No Hearing needs: No Vision needs: No Questionnaire PHQ-9 Over the last 2 weeks, how often have you been bothered by any of the following problems? 1. Little interest or pleasure in doing things: more than half the days 2. Feeling down, depressed, or hopeless: more than half the days 3. Trouble falling or staying asleep, or sleeping too much: not at all 4. Feeling tired or having little energy: not at all 5. Poor appetite or overeating: more than half the days 6. Feeling bad about yourself - or that you are a failure or have let yourself or your family down: not at all 7. Trouble concentrating on things, such as reading the newspaper or watching television: not at all 8. Moving or speaking so slowly that other people could have noticed. Or the opposite - being so fidgety or restless that you have been moving around a lot more than usual: not at all 9. Thoughts that you would be better off or of hurting yourself in some way: not at all Total score: 6 Depression Screening Interpretation: Negative Depression Screening Done: Yes 19329 - PHQ-9 Billing: Yes Source: Developed by Drs. Nic Hernandez, Renetta Thomas, Jason Hamilton and colleagues, with an educational yolie from [employer]. Thrive Questionnaire Date Thrive assessed: 09/26/24 I am a: Patient What is your living situation today?: I have a steady place to live Within the past 12 months, did the food you bought not last and you didn't have the money to get more?: Never true Within the past 12 months, did you worry whether your food would run out before you got money to buy more?: Never true Do you have trouble paying for medicines?: No Do you have trouble getting transportation to medical appointments?: No Do you have trouble paying your heating and electricity bill?: No Do you have trouble taking care of your child, family member or friend?: No Do you have trouble with day-to-day activities such as bathing, preparing meals, shopping, managing finances, etc.?: No Are you currently unemployed and looking for a job?: No Are you interested in more education?: Yes Please select the resources that you would like help with: None Currently or been in a relationship where the following occur: No concerns reported THRIVE Score: 0 AUDIT C Alcohol Use Questionnaire (AUDIT-C) 1. How often do you have a drink containing alcohol?: Monthly or less 2. How many drinks containing alcohol do you have on a typical day when you are drinking?: 1 or 2 3. How often do you have six or more drinks on one occasion?: Less than monthly Total Score: 2 Score Reviewed/Action Taken: Yes SAMANTHA-7 AMB Questionnaire SAMANTHA-7 Date SAMANTHA - 7 assessed: 09/26/24 Feeling nervous, anxious, or on edge: 0 = Not at all Not being able to stop or control worryin = Not at all Worrying too much about different things: 0 = Not at all Trouble relaxin = Not at all Being so restless that it is hard to sit still: 0 = Not at all Becoming easily annoyed or irritable: 0 = Not at all Feeling afraid as if something awful might happen: 0 = Not at all Total SAMANTHA-7 score (0-4 normal; 5-9 mild; 10-14 moderate; 15-21 severe): 0 Source: Developed by Drs. Nic Hernandez, Renetta Thomas, Jason Hamilton and colleagues, with an educational yolie from [employer]. SAMANTHA-7 Assessment Billing SAMANTHA-7 Assessment Tool: SAMANTHA-7 Assessment 89799 Physical exam (Primary Care) Vital Signs: Last Vital Signs Temp 97.9 F 09/26/24 12:44 Pulse 67 09/26/24 12:44 BP 128/74 09/26/24 12:44 Pulse Ox 98 09/26/24 12:44 BMI result Body Mass Index 36.8 Tobacco/Smoking Status: Tobacco use Status Tobacco use date assessed 09/26/24 09/26/24 12:48 Patient Tobacco Use Status Never used Tobacco 09/26/24 12:48 e-Cigarette/Vaping Use Never Used 09/26/24 12:48 PHQ-9: PHQ-9 Score PHQ-9: Total score 6 09/26/24 13:08 Depression Screening Interpretation: Negative Thrive Assessment: Date of Thrive Assessment Date Thrive assessed 09/26/24 09/26/24 12:48 Currently or been in a relationship where the following occur: No concerns reported Office Procedures EKG 53332-Hosohdbrhuisnbryc, Complete Coding Level of Care Code Est Pt Level 4 (49705) Diagnoses Chest discomfort R07.89 Palpitation R00.2 Epigastric discomfort R10.13 Obesity (BMI 30.0-34.9) E66.9 CPT Codes EKG - CPT: 21098-Kcwwkhaqtqxzywgry, Complete ([id number]) Additional Codes SAMANTHA-7 Assessment Billing - SAMANTHA-7 Assessment Tool: SAMANTHA-7 Assessment 73987 ([id number]) PHQ-9 - 70012 - PHQ-9 Billing: Yes ([id number]) Assessment & Plan Assessment & Plan (1) Chest discomfort: Code(s): R07.89 - Other chest pain Category: Medical (2) Palpitation: Code(s): R00.2 - Palpitations Category: Medical (3) Epigastric discomfort: Code(s): R10.13 - Epigastric pain Category: Medical (4) Obesity (BMI 30.0-34.9): Code(s): E66.9 - Obesity, unspecified Category: Medical Plan The patient is a 24-year-old female presenting with heart palpitations and chest pain. - Reports heart palpitations initially severe, now occurring as multiple episodes per day, brief in duration but intense. - Describes recent chest pain, sharp in nature, at times accompanied by dull pain and exacerbated by deep breathing leading to tightness. - today's evaluation indicated normal EKG findings; Holter monitoring is advised for further assessment. Order placed - Past episodes of perceiving heartbeats in ears, possibly related to dietary habits during a trip, did not raise significant concerns in previous consults. - Management for known GERD has been discussed, emphasizing dietary adjustments to alleviate symptoms. - No thyroid malfunction as previously evaluated; continuing vitamin D supplementation for deficiency management. Problem List - Heart palpitations - chest pain - possible Gastroesophageal reflux disease (GERD) - Vitamin D deficiency - obesity with BMI of 36.8 Patient Instructions - Undergo Holter monitoring for further cardiac rhythm evaluation. - Avoid spicy, acidic, and fried foods to help manage reflux symptoms. - Continue with vitamin D supplementation as previously prescribed. - Be vigilant about dietary choices that could impact symptoms, such as avoiding coffee and citrus juices. - Monitor for any escalation in symptoms or new developments, and seek prompt medical review if necessary. Orders: Orders ECG 3 day holter monitor Today R00.2 - Palpitations
--- OUTSIDE RECORDS SUMMARY | 2024-09-26 13:44 | XMS_ITS | Clinical Summary ---
Author Organization [facility] Address [address] [place] [address] Care Team Providers Care Lockmaker Name Role Phone Unavailable Primary Care Provider Unavailabl e Source Comments PLEASE NOTE, if this patient is a minor, it may be UNLAWFUL to discuss sensitive information that is contained in these records (such as FAMILY PLANNING, MENTAL HEALTH or SUBSTANCE ABUSE) with the minor patient's parent or other person without the patient's specific authorization.[facility] Immunizations Name Administration Dates Next Due Moderna COVID-19 Vaccine, re d cap blue label, 12+ Primary Series 01/01/2021,12/04/2020 Social History Tobacco Use Types Packs/Day Years Used Date Smoking Tobacco: Never Assessed Social Connections Answer Date Recorded Social Connections and Isolation 0 12/04/2020 Financial Resource Strain Answer Date R ecorded Financial Resource Strain 0 2020 Stress Answer Date Recorded Stress 0 12/04/2020 Physical Activity Answer Date Recorded Physical Activity 0 12/04/2020 Food Insecurity Answer Date Recorded Food 0 12/04/2020 Transportation Needs Answer Date Record ed Transportation 0 12/04/2020 Housing Stability Answer Date Recorded Housing 0 12/04/2020 Safety and Environment Answer Date Alonzo rded Safety 0 12/04/2020 Utilities Answer Date Recorded Utilities 0 12/04/2020 Employment Answer Date Recorded Employment 0 12/04/2020 Comments Unknown Sex and Gender Information Value Date Recorded Sex Assigned at Not on file Legal Sex Female 8:13 AM PDT Gender Identity Not on file Sexual Orientation Not on file Plan of Treatment Health Maintenance Due Date Last Done Comments HPV Screening 1998 Hepatitis C Screening 1998 Pap + HPV 1998 Tobacco Screening 1998 HIV Screening 2013 Imm-HPV (1 - 3-dose series) 2013 Relationship Safety Screening/Counseling 2013 Annual Preventive Care Visit 2016 Hypertension Screening (#1) 2016 Imm-DTaP/Tdap/Td (1 - Tdap) 2017 Imm-Hepatitis B (1 of 3 - 19 + 3-dose series) 2017 Cervical Cancer Screening 2019 Pap Smear 2019 Alcohol and Drug Screen 08/16/2023 Depression Annual Screen 08/16/2023 [id number]-97 ( season) 2024 021, 12/04/2020 Imm-Influenza (#1) 2024 Cervical Ablation/Cold-Knife Conization Discontinued Cervical Cryotherapy Discontinued Colposcopy Discontinued Endometrial Biopsy Discontinued Excision/Leep Discontinued HPV Genotyping Discontinued Vaginal Pap Discontinued Vulvoscopy Discontinued Insurance BLUE CROSS/JAGDISH GERBER Member Subscriber Plan / Payer (Ef fective 2017-Present) Name:Gi Quesada Relation to Subscriber:Self Name:Gi Quesada Payer ID:[id number] Group ID:[id number] Type:Indemnity Address: [facility] [id number] [place] [address]
== END 2024-09-26 14:31 | disposition home or self-care (01) ==
PROVIDERS: PCP Internal Medicine; Visit Provider Internal Medicine
DX: R07.89 Other chest pain (principal); R00.2 Palpitations; E66.9 Obesity, unspecified; Z68.36 Body mass index [BMI] 36.0-36.9, adult; R10.13 Epigastric pain

== ENCOUNTER → 2024-09-26 12:40 | Outpatient (BNVA) | payer OTHER, SELFPAY | PROVIDERS: PCP Internal Medicine; Visit Provider Internal Medicine | DX: R07.89 Other chest pain (principal); R00.2 Palpitations; R10.13 Epigastric pain; E66.9 Obesity, unspecified; Z68.36 Body mass index [BMI] 36.0-36.9, adult | CPT/HCPCS: 93005; 96127 ==

== ENCOUNTER → 2024-10-06 07:58 | Outpatient (REF) | payer OTHER, SELFPAY ==
--- OUTSIDE RECORDS SUMMARY | 2024-10-06 08:02 | XMS_ITS | Clinical Summary ---
Author Organization [facility] Address [address] [place] [address] Care Team Providers Care Stope Miner Name Role Phone Unavailable Primary Care Provider [...] Drug Screen 08/16/2023 Depression Annual Screen 08/16/2023 [id number] ( season) 2024 021, 12/04/2020 Imm-Influenza (#1) 2024 Cervical Ablation/Cold-Knife Conization Discontinued Cervical Cryotherapy Discontinued Colposcopy Discontinued Endometrial Biopsy Discontinued Excision/Leep Discontinued HPV Genotyping Discontinued Vaginal Pap Discontinued Vulvoscopy Discontinued Insurance BLUE CROSS/JAGDISH GERBER Member Subscriber Plan / Payer (Ef fective 2017-Present) Name:Gi Quesada Relation to Subscriber:Self Name:Gi Quesada Payer ID:[id number] Group ID:[id number] Type:Indemnity Address: [facility] [id number] [place] [address]
--- OUTSIDE RECORDS SUMMARY | 2024-10-06 08:02 | XMS_ITS ---
Author Organization [facility] Address [address] [place] [address] Care Team Providers Care Logistics Engineering Manager Name Role Phone [facility]y HUNT, [facility] Primary Care Provider Ford Ching Unavailable [phone] Allergies No Known Allergies REASON FOR VISIT [...] 06/08/2023 Encounters Encounter Location Date Provider Diagnosis [facility] [address] [place] [address] 06/08/2023 Ford Berger Pain in left foot [...] Notes * DIPAKMarcose EDOB:2000 (23 yo F)Acc No.[id number]:06/08/2023 Progress Notes Patient:?Gi Quesada Provider:?Ford Berger DPM :2000???Age:23 Y???Sex:Female D ate:06/08/2023 Address:[address] [place] [address] [id number] Pcp:Carline Pablo MD Subjective: * Chief Complaints: [...] Caffeine. ?no Children. ?Marital status: single. 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 * Medications:?None * Allergies:?N.K.D.A.yes[Aller gies [...] with: RICE THERAPY.pdf (RICE THERAPY.pdf)?? * Procedure Codes:?98574 X-RAY EXAM OF LEFT FOOT 3V, Modifiers: [...] Interfil injection therapy, as well as surgical [place]/Endoscopic Fasciitomy surgical procedures if needed. Recommendations were [...] Berger DPM Date:?2022 Generated for Jerardo queen/Domingo/Arnavitting on:?10/06/2024 08:02 AM EST History and Physical Notes * [...] person, place, and t gregg Vascular DP PULSES (B): 3/4, B/L PT PULSES (B): 3/4, B/L CAPILLARY FILL TIME: immediate, all digi ts, B/L TEMPERTURE GRADIENT (C): warm to cool, p roximal to distal, B/L TROPHIC CONDITION-TEXTURE/ELASTICITY/TURGOR/HAIR GROWTH (B): normal, B/L EDEMA (C): absent, B/L PIGMENTATION: normal, B/L X-Rays - [...]
--- OUTSIDE RECORDS SUMMARY | 2024-10-06 08:02 | XMS_ITS | Patient Health Record ---
Author Organization [facility] connor Olar Address [address] [place] [address] Care Team Providers Care Liquid Natural Gas Plant Operator Name Role Phone Samy HUNT, [facility] Primary Care Provider Ford Ching Unavailable [phone] Allergies No Known Allergies Reason For Referral [...] Insured Coverage Start Date Coverage End Date [facility] [id number] [place] [address] [id number] Yayo Quesada Child - Insured has Financial Responsibility Medical (General) History Medical History History ICD Code Back,Hip,and Knee pain Broken bones covid-19 Headaches Numbness Warts Joint implants/screws Surgical History Surgery Date(Month/Year) pelvic ORIF 2015
== END ==
LOC: HO.CARD 07:58
PROVIDERS: PCP Internal Medicine; Visit Provider Internal Medicine
DX: R00.2 Palpitations (principal)
CPT/HCPCS: 93242

== ENCOUNTER → 2024-10-06 08:00 | Outpatient (BNV) | payer OTHER, SELFPAY | PROVIDERS: PCP Internal Medicine; Visit Provider Internal Medicine Cardiovascular Disease | DX: I49.1 Atrial premature depolarization (principal); I49.3 Ventricular premature depolarization | CPT/HCPCS: 93244 ==

== ENCOUNTER 2025-01-05 13:49 | Outpatient (AMB) | payer OTHER, SELFPAY ==
--- NOTE | 2025-01-05 13:51 | AM.OFFVISNUR ---
Intake Visit Reasons: Hep B #3 Allergies No Known Allergies Allergy (Verified 09/26/24 12:45) Immunizations Engerix-B (PF) 20 mcg/mL intramuscular suspension Performing Provider: Arianne Zuniga MD Performing Location: [facility] Administered by: Diana Martinez RN on 01/05/25 13:55 Dose Route Admin Location Dispensed Lot Number Expiration Date NDC Crop Picker 1 mL IM Left Deltoid 1 mL [id number] 03/13/27 18508-826-12 [employer] VIS Given Date VIS Provided VIS Publication Date 01/05/25 Single Vaccine 22 Eligibility Eligibility Date Funding Source Not [facility] Eligible 01/05/25 Private Assessment & Plan Assessment & Plan Orders: Orders Hepatitis B Adult Immunization Today Z23 - Encounter for immunization Medications: New Engerix-B (PF) (hepatitis B virus vacc.rec(PF)) 1 mL IM ONCE 1 mL 0RF NS Z23 - Encounter for immunization Coding Level of Care Code Established Pt Est Pt Level 1 (46585) Patient Type Established Medical Decision Making Straight Forward
--- OUTSIDE RECORDS SUMMARY | 2025-01-05 13:52 | XMS_ITS | Clinical Summary ---
Author Organization [facility] Address [address] [place] [address] Care Team Providers Care Computer Tape Librarian Name Role Phone Unavailable Primary Care Provider Unavailabl e Source Comments PLEASE NOTE, if this patient is a minor, it may be UNLAWFUL to discuss sensitive information that is contained in these records (such as FAMILY PLANNING, MENTAL HEALTH or SUBSTANCE ABUSE) with the minor patient's parent or other person without the patient's specific authorization.[facility] Immunizations Immunization Administration Dates Next Due Moderna COVID-19 Vaccine, [...] Health Maintenance Due Date Last Done Comments Anxiety Screening 1998 HPV Screening 1998 Hepatitis C Screening 1998 Pap + HPV 1998 Tobacco Screening 1998 HIV Screening 2013 Imm-HPV (1 - 3-dose series) 2013 Relationship Safety Screening/Counseling 2013 Hypertension Screening (#1) 2016 Imm-DTaP/Tdap/Td (1 - Tdap) 2017 Imm-Hepatitis B (1 of 3 - 19 + 3-dose series) 2017 Cervical Cancer Screening 2019 Pap Smear 2019 Tcr-[id number]-78 (2023- season) 04/16/202401/01/ 021, 12/04/2020 Imm-Influenza (#1) 2024 Alcohol and Drug Screen 08/16/2024 Depression Annual Screen 08/16/2024 Cervical Ablation/Cold-Knife Conization Discontinued Cervical Cryotherapy Discontinued Colposcopy Discontinued Endometrial Biopsy Discontinued Excision/Leep Discontinued HPV Genotyping Discontinued Vaginal Pap Discontinued Vulvoscopy Discontinued Insurance BLUE CROSS/JAGDISH GERBER Member Subscriber Plan / Payer (Ef fective 2017-Present) Name:Gi Quesada Relation to Subscriber:Self Name:Gi Quesada Payer ID:[id number] Group ID:[id number] Type:Indemnity Address: [facility] [id number] [place] [address]
== END 2025-01-05 13:56 | disposition home or self-care (01) ==
LOC: HO.HGI 13:50
PROVIDERS: PCP Internal Medicine; Visit Provider Internal Medicine
DX: Z23 Encounter for immunization (principal)

== ENCOUNTER → 2025-01-05 13:49 | Outpatient (BNVA) | payer OTHER, SELFPAY | PROVIDERS: PCP Internal Medicine; Visit Provider Internal Medicine | DX: Z23 Encounter for immunization (principal) | CPT/HCPCS: 90471; 90746; 99211 ==

== ENCOUNTER 2025-02-28 14:31 | Outpatient (AMB) | payer OTHER, SELFPAY ==
[2025-02-28 14:35] VITALS: BP 126/78; PULSE 66; O2SAT 97; BMI 37.2
--- NOTE | 2025-02-28 14:35 | A.OFFPC_ITS ---
Vital Signs 02/28/25 14:35 Height 5 ft 3 in Weight 210 lb BMI 37.2 BP 126/78 Blood Pressure Location Lt brachial Position Sitting Pulse 66 Pulse Source Pulse Oximeter Pulse Oximetry (%) 97 Oxygen Delivery Method Room Air Intake Visit Reasons: Annual PE Allergies No Known Allergies Allergy (Verified 02/28/25 14:36) Medication List - Last Reconciled 02/28/25 by Carline Pablo MD No Known Home Meds Tobacco use date assessed: 09/26/24 Dental Screening Dental Screen Date: 09/26/24 HPI Annual PE HPI Details Physical exam - The patient is a 24 year old female pr esenting for a routine annual physical examination and tetanus vaccination update. - History of chest discomfort which was reported in September of the current year; currently asymptomatic. - Reports recent sensitivity during a gy necological exam; an ultrasound is scheduled for further evaluation. - Vitamin D deficiency was identified in past lab work. The patient has been taking vitamin D supplements. - History of migraines with a recent epi sode attributed to stress, possibly exacerbated by hot and humid weather. - blood pressure is stable. - The patient is clearing her late fathe r's home which involved significant physical activity. Medical History: - Vitamin D deficiency, currently manage d with supplements. - History of migraines. 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 - Engaged in physical cleanup of her lat e father's home since June due to his hoarding behaviors. - Navigating the legal process of inheri ting the house, which involves financial responsibilities. Family History: - Father () had hoarding behavio r. Health Maintenance - Tetanus vaccine discussed and planned for administration today. - Blood work done in May last year w ith all values within normal ranges except for vitamin D. - Patient is taking vitamin D supplement s as vitamins. - Last hepatitis B vaccine administered in December of the current year. - Scheduled ultrasound for further evalu ation of sensitivity noted during CARPENTER INSPECTOR exam. 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 Diagnostic results - Labs: Complete Blood Count (CBC) sofy l, Kidney function normal, Electrolytes normal, Liver enzymes normal, LDL cholesterol 118 mg/dL, Thyroid function normal, Vitamin D low. - Upcoming test: Ultrasound scheduled fo r evaluation of sensitivity during gynecological exam. Patient Instructions - Continue taking vitamin D supplements as advised. - Follow up with ultrasound as scheduled . - Receive the tetanus vaccine today. - Maintain current health practices and monitor for any new symptoms. Review of Systems - General: No fever no chills - Neurological: No headaches no dizzin ess - Ear nose throat: No sore throat no hearing difficulty no ear pain - Cardiovascular: No syncope, no chest pain, no palpitations - Gastrointestinal: No nausea vomiting or diarrhea - Endocrine: No polyuria polydipsia no heat intolerance - Genitourinary: No dysuria - Skin: No new complaints Physical Exam General: Cooperative, healthy appearing, comfortable, no acute distress Orientation: Patient oriented x3 Head: Normal to inspection Ears: Within normal limit visually Nose: Normal external nose present Face and sinus: Normal facial exam Eyes: Appearance normal, extraocular movement intact pupils reactive Neck: Normal visual inspection and supple Respiratory: Normal respiratory effort and able to speak in complete sentences. Clear to auscultation, no stridor Cardiovascular: S1 and S2 RRR Breast exam through OBGYN GI: Normal to inspection. Soft to palpation and nontender Skin: Turgor normal, no acute findings Neuro: Patient oriented x3, motor sensory intact, balance intact, tandem pass Extremities: Normal to inspection, range of motion intact PFSH Surgical History No pertinent past surgical history Family History Father Diabetes Mother Diabetes Cancer Paternal Grandmother Cancer Social History Housing: House Alcohol intake: current Alcohol intake frequency: a few times a month Patient Tobacco Use Status: Never used Tobacco e-Cigarette/Vaping Use: Never Used Current occupational status: employed Cognitive needs: No Hearing needs: No Vision needs: No Questionnaire PHQ-9 Over the last 2 weeks, how often have you been bothered by any of the following problems? 1. Little interest or pleasure in doing things: not at all 2. Feeling down, depressed, or hopeless: not at all 3. Trouble falling or staying asleep, or sleeping too much: not at all 4. Feeling tired or having little energy: not at all 5. Poor appetite or overeating: not at all 6. Feeling bad about yourself - or that you are a failure or have let yourself or your family down: not at all 7. Trouble concentrating on things, such as reading the newspaper or watching television: not at all 8. Moving or speaking so slowly that other people could have noticed. Or the opposite - being so fidgety or restless that you have been moving around a lot more than usual: not at all 9. Thoughts that you would be better off or of hurting yourself in some way: not at all Total score: 0 Depression Screening Interpretation: Negative Depression Screening Done: Yes 12760 - PHQ-9 Billing: Yes Source: Developed by Drs. Nic Hernandez, Jason Driver and colleagues, with an educational yolie from [employer]. Thrive Questionnaire Date Thrive assessed: 02/28/25 I am a: Patient What is your living situation today?: I have a steady place to live Within the past 12 months, did the food you bought not last and you didn't have the money to get more?: Never true Within the past 12 months, did you worry whether your food would run out before you got money to buy more?: Never true Do you have trouble paying for medicines?: No Do you have trouble getting transportation to medical appointments?: No Do you have trouble paying your heating and electricity bill?: No Do you have trouble taking care of your child, family member or friend?: No Do you have trouble with day-to-day activities such as bathing, preparing meals, shopping, managing finances, etc.?: No Are you currently unemployed and looking for a job?: No Are you interested in more education?: Yes Please select the resources that you would like help with: None Currently or been in a relationship where the following occur: No concerns reported THRIVE Score: 0 SAMANTHA-7 AMB Questionnaire SAMANTHA-7 Date SAMANTHA - 7 assessed: 09/26/24 Source: Developed by Drs. Nic Hernandez, Jason Driver and colleagues, with an educational yolie from [employer]. Physical exam (Primary Care) Vital Signs: Last Vital Signs Pulse 66 02/28/25 14:35 BP 126/78 02/28/25 14:35 Pulse Ox 97 02/28/25 14:35 Oxygen Delivery Method Room Air 02/28/25 14:35 BMI result Body Mass Index 37.2 Tobacco/Smoking Status: Tobacco use Status Tobacco use date assessed 09/26/24 02/28/25 14:37 Patient Tobacco Use Status Never used Tobacco 02/28/25 14:37 e-Cigarette/Vaping Use Never Used 02/28/25 14:37 Depression Screening Interpretation: Negative Thrive Assessment: Date of Thrive Assessment Date Thrive assessed 02/28/25 02/28/25 14:37 Currently or been in a relationship where the following occur: No concerns reported Immunizations Boostrix Tdap 2.5 Lf unit-8 mcg-5 Lf/0.5 mL intramuscular syringe Performing Provider: Carline Pablo MD Performing Location: [facility] Administered by: Deya Heard CMA on 02/28/25 15:08 Dose Route Admin Location Dispensed Lot Number Expiration Date NDC Manager Recovery 0.5 mL IM Left Deltoid 0.5 mL [id number] 10/06/26 63060-355-61 [employer] Total Dispensed Waste 0.5 mL 0 % VIS Given Date VIS Provided VIS Publication Date 02/28/25 Single Vaccine 21 Eligibility Eligibility Date Funding Source Not [facility] Eligible 02/28/25 Private Coding Level of Care Code Est Pt Prev Care 18-39y(50102) Diagnoses Annual physical exam Z00.00 Immunizations incomplete Z28.39 Vitamin D deficiency E55.9 BMI 37.0-37.9, adult Z68.37 Additional Codes PHQ-9 - 16943 - PHQ-9 Billing: Yes ([id number]) Assessment & Plan Assessment & Plan (1) Annual physical exam: Code(s): Z00.00 - Encounter for general adult medical examination without abnormal findings Category: Medical (2) Immunizations incomplete: Code(s): Z28.39 - Other underimmunization status Category: Medical (3) Vitamin D deficiency: Code(s): E55.9 - Vitamin D deficiency, unspecified Category: Medical (4) BMI 37.0-37.9, adult: Code(s): Z68.37 - Body mass index [BMI] 37.0-37.9, adult Category: Medical Plan Physical exam - The patient is a 24 year old female presenting for a routine annual physical examination and tetanus vaccination update. - History of chest discomfort which was reported in September of the current year; currently asymptomatic. - Reports recent sensitivity during a gynecological exam; an ultrasound is scheduled for further evaluation. - Vitamin D deficiency was identified in past lab work. The patient has been taking vitamin D supplements. - History of migraines with a recent episode attributed to stress, possibly exacerbated by hot and humid weather. - blood pressure is stable. - The patient is clearing her late father's home which involved significant physical activity. Medical History: - Vitamin D deficiency, currently managed with supplements. - History of migraines. 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 - Engaged in physical cleanup of her late father's home since June due to his hoarding behaviors. - Navigating the legal process of inheriting the house, which involves financial responsibilities. Family History: - Father () had hoarding behavior. Health Maintenance - Tetanus vaccine discussed and planned for administration today. - Blood work done in May last year with all values within normal ranges except for vitamin D. - Patient is taking vitamin D supplements as vitamins. - Last hepatitis B vaccine administered in December of the current year. - Scheduled ultrasound for further evaluation of sensitivity noted during CARPENTER INSPECTOR exam. 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 Diagnostic results - Labs: Complete Blood Count (CBC) normal, Kidney function normal, Electrolytes normal, Liver enzymes normal, LDL cholesterol 118 mg/dL, Thyroid function normal, Vitamin D low. - Upcoming test: Ultrasound scheduled for evaluation of sensitivity during gynecological exam. Patient Instructions - Continue taking vitamin D supplements as advised. - Follow up with ultrasound as scheduled. - Receive the tetanus vaccine today. - Maintain current health practices and monitor for any new symptoms. Orders: Orders TDaP Immunization Today Z23 - Encounter for immunization
--- OUTSIDE RECORDS SUMMARY | 2025-02-28 15:12 | XMS_ITS | Patient Health Record ---
Author Organization [facility] [address] [place] Address [address] [place] [address] Care Team Providers Care Injection Operator Name Role Phone Samy HUNT, [facility] Primary Care Provider Ford Ching Unavailable [phone] Allergies No Known Allergies Reason For Referral [...] Insured Coverage Start Date Coverage End Date [facility] [address] [place] [address] [id number] Yayo Quesada Child - Insured has Financial Responsibility Medical (General) History Medical History History ICD Code Back,Hip,and Knee pain Broken bones covid-19 Headaches Numbness Warts Joint implants/screws Surgical History Surgery Date(Month/Year) pelvic ORIF 2015
== END 2025-02-28 15:05 | disposition home or self-care (01) ==
LOC: HO.HMCC 14:32
PROVIDERS: PCP Internal Medicine; Visit Provider Internal Medicine
DX: Z00.00 Encounter for general adult medical examination without abnormal findings (principal); Z28.39 Other underimmunization status; E55.9 Vitamin D deficiency, unspecified; Z68.37 Body mass index [BMI] 37.0-37.9, adult; Z23 Encounter for immunization

== ENCOUNTER → 2025-02-28 14:31 | Outpatient (BNVA) | payer OTHER, SELFPAY | PROVIDERS: PCP Internal Medicine; Visit Provider Internal Medicine | DX: Z00.00 Encounter for general adult medical examination without abnormal findings (principal); E55.9 Vitamin D deficiency, unspecified; G43.909 Migraine, unspecified, not intractable, without status migrainosus; Z23 Encounter for immunization | CPT/HCPCS: 90471; 90715; 96127 ==

== ENCOUNTER 2025-04-19 06:50 | Outpatient (AMB) | payer OTHER, SELFPAY ==
--- OUTSIDE RECORDS SUMMARY | 2025-04-19 06:54 | XMS_ITS | Patient Health Record ---
Author Organization [facility] [address] [place] Address [address] [place] [address] Care Team Providers Care Airport Manager Name Role Phone Samy HUNT, [facility] Primary Care Provider Ford Ching Unavailable [phone] Allergies No Known Allergies Reason For Referral [...] Insured Coverage Start Date Coverage End Date [facility] [id number] [place] [address] [id number] Yayo Quesada Child - Insured has Financial Responsibility Medical (General) History Medical History History ICD Code Back,Hip,and Knee pain Broken bones covid-19 Headaches Numbness Warts Joint implants/screws Surgical History Surgery Date(Month/Year) pelvic ORIF 2015
--- OUTSIDE RECORDS SUMMARY | 2025-04-19 06:54 | XMS_ITS | Clinical Summary ---
Author Organization [facility] Address [address] [place] [address] Care Team Providers Care Liaison Planner Name Role Phone Unavailable Primary Care Provider [...] 1998 Tobacco Screening 1998 HIV Screening 2013 Relationship Safety Screening/Counseling 2013 Hypertension Screening (#1) 2016 Imm-DTaP/Tdap/Td (1 - Tdap) 2017 Imm-Hepatitis B (1 of 3 - 19 + 3-dose series) 2017 Cervical Cancer Screening 2019 Pap Smear 2019 [id number] ( season) 2024 021, 12/04/2020 Alcohol and Drug Screen 08/16/2024 Depression Annual Screen 08/16/2024 Imm-Influenza (#1) 2025 Cervical Ablation/Cold-Knife Conization Discontinued Cervical Cryotherapy Discontinued Colposcopy Discontinued Endometrial Biopsy Discontinued Excision/Leep Discontinued HPV Genotyping Discontinued Vaginal Pap Discontinued Vulvoscopy Discontinued Insurance BLUE CROSS/JAGDISH GERBER
--- NOTE | 2025-04-19 09:15 | A.OFFPC_ITS ---
Intake Visit Reasons: genetics testing Allergies No Known Allergies Allergy (Verified 02/28/25 14:36) Medication List - Last Reconciled 04/19/25 by Carline Pablo MD No Known Home Meds Tobacco use date assessed: 09/26/24 Dental Screening Dental Screen Date: 09/26/24 HPI genetics testing HPI Details Interval History The patient is a 25-year-old female presenting with concerns regarding family history of cervical cancer? [she is not even sure what kind of cancer her Mom has] and potential hereditary cancer risks. Family history of cervical cancer: - The patient reports her mother's past cancer scare, which she believes to be cervical cancer. - Concerns initiated by recent precancer ous cervical findings in her niece, involving biopsy. - Inquired about cancer history on her f ather's side; informed of prostate cancer. - Efforts to understand risk also includ ed discussions with her uncle about familial cancer occurrences; however, prostate cancer was the only known type on her father's side. Social History: - The patient confirms maintaining regul ar visits to an LINE CREWMAN for Pap smears. Problem List - Family history of cervical cancer Patient Instructions - Regularly attend LINE CREWMAN visits. - Continue scheduled Pap smear tests. - Maintain an open dialogue [facility] regarding any changes. Review of Systems - General: No fever no chills - Neurological: No headaches no dizziness - Ear nose throat: No sore throat no hearing difficulty no ear pain - Cardiovascular: No syncope, no chest pain, no palpitations - Gastrointestinal: No nausea vomiting or diarrhea - Endocrine: No polyuria polydipsia no heat intolerance - Genitourinary: No dysuria , no blood in urine PFSH Surgical History No pertinent past surgical history Family History Father Diabetes Mother Diabetes Cancer Paternal Grandmother Cancer Social History Housing: House Alcohol intake: current Alcohol intake frequency: a few times a month Patient Tobacco Use Status: Never used Tobacco e-Cigarette/Vaping Use: Never Used Current occupational status: employed Cognitive needs: No Hearing needs: No Vision needs: No Questionnaire Thrive Questionnaire Date Thrive assessed: 09/22/24 I am a: Patient What is your living situation today?: I have a steady place to live Within the past 12 months, did the food you bought not last and you didn't have the money to get more?: Never true Within the past 12 months, did you worry whether your food would run out before you got money to buy more?: Never true Do you have trouble paying for medicines?: No Do you have trouble getting transportation to medical appointments?: No Do you have trouble paying your heating and electricity bill?: No Do you have trouble taking care of your child, family member or friend?: No Do you have trouble with day-to-day activities such as bathing, preparing meals, shopping, managing finances, etc.?: No Are you currently unemployed and looking for a job?: No Are you interested in more education?: Yes Please select the resources that you would like help with: None Currently or been in a relationship where the following occur: No concerns reported THRIVE Score: 0 SAMANTHA-7 AMB Questionnaire SAMANTHA-7 Date SAMANTHA - 7 assessed: 09/26/24 Source: Developed by Drs. Nic Hernandez, Renetta Thomas, Jason Hamilton and colleagues, with an educational yolie from [employer]. Physical exam (Primary Care) Tobacco/Smoking Status: Tobacco use Status Tobacco use date assessed 09/26/24 04/19/25 09:16 Patient Tobacco Use Status Never used Tobacco 04/19/25 09:16 e-Cigarette/Vaping Use Never Used 04/19/25 09:16 Thrive Assessment: Date of Thrive Assessment Date Thrive assessed 09/22/24 04/19/25 09:16 Currently or been in a relationship where the following occur: No concerns reported Telehealth Telehealth [facility] Location of provider rendering services: practice address Location of patient: address on file Patient Identification confirmed using: Name, : Yes Telehealth method: video Patient verbally consented to treatment: Yes Patient verbally consented to billing insurance company: Yes Patient informed of any privacy concerns related to visit: Yes Minutes spent on Phone/Video with Pt.: 13 Coding Level of Care Code Tele Est Pt Level 3 (78028) Diagnoses Family history of genital cancer Z80.49 Health education/counseling Z71.9 Assessment & Plan Assessment & Plan (1) Family history of genital cancer: Code(s): Z80.49 - Family history of malignant neoplasm of other genital organs Category: Medical (2) Health education/counseling: Code(s): Z71.9 - Counseling, unspecified Category: Medical Plan Interval History The patient is a 25-year-old female presenting with concerns regarding family history of cervical cancer? [she is not even sure what kind of cancer her Mom has] and potential hereditary cancer risks. Family history of cervical cancer: - The patient reports her mother's past cancer scare, which she believes to be cervical cancer. - Concerns initiated by recent precancerous cervical findings in her niece, involving biopsy. - Inquired about cancer history on her father's side; informed of prostate cancer. - Efforts to understand risk also included discussions with her uncle about familial cancer occurrences; however, prostate cancer was the only known type on her father's side. Social History: - The patient confirms maintaining regular visits to an LINE CREWMAN for Pap smears. Problem List - Family history of cervical cancer Patient Instructions - Regularly attend LINE CREWMAN visits. - Continue scheduled Pap smear tests. - Maintain an open dialogue with your healthcare provider regarding any changes.
== END 2025-04-19 10:56 | disposition home or self-care (01) ==
LOC: HO.HMCC 06:50
PROVIDERS: PCP Internal Medicine; Visit Provider Internal Medicine
DX: Z80.49 Family history of malignant neoplasm of other genital organs (principal); Z71.9 Counseling, unspecified

== ENCOUNTER 2025-07-10 15:04 | Outpatient (REF) | payer OTHER, SELFPAY ==
--- NOTE | ~2025-07-10 | XR_ITS ---
EXAMINATION: XR FOOT 3 OR MORE VIEWS LEFT HISTORY: M79.672 - Pain in left foot COMPARISON: There are no prior studies available for comparison. FINDINGS: Three views of the left foot are submitted. Osseous mineralization is normal. There is no fracture or dislocation. The joint spaces are preserved. The soft tissues are unremarkable. XR/XR foot LT min 3V IMPRESSION: Unremarkable examination of the left foot. Electronically signed by: Nic Vanessa MD 07/10/2025 03:49 PM EST
== END 2025-07-10 15:05 | disposition home or self-care (01) ==
LOC: HO.HMGCX 15:04
PROVIDERS: PCP Internal Medicine; Visit Provider Internal Medicine
DX: M79.672 Pain in left foot (principal); E55.9 Vitamin D deficiency, unspecified; G89.29 Other chronic pain
CPT/HCPCS: 73630

== ENCOUNTER 2025-07-10 15:04 | Outpatient (AMB) | payer OTHER, SELFPAY ==
[2025-07-10 15:08] VITALS: BP 126/74; PULSE 76; O2SAT 98; BMI 37.9
--- NOTE | 2025-07-10 15:08 | A.OFFPC_ITS ---
Vital Signs 07/10/25 15:08 Height 5 ft 3 in Weight 214 lb BMI 37.9 BP 126/74 Blood Pressure Location Lt brachial Position Sitting Pulse 76 Pulse Source Pulse Oximeter Pulse Oximetry (%) 98 Intake Visit Reasons: referral Allergies No Known Allergies Allergy (Verified 07/10/25 15:09) Medication List - Last Reconciled 07/10/25 by Carline Pablo MD No Known Home Meds Tobacco use date assessed: 09/26/24 Dental Screening Dental Screen Date: 09/26/24 HPI HPI Comments History of Present Illness Details History of Present Illness The patient is a 25 year old individual presenting with a growing bump on the top of the left foot. Left foot mass: - The patient reports having a bump on t he top of the left foot for a long time, but it has recently started to grow in size. - The lump is described as being as hard as a bone. - The patient now experiences pain when wearing shoes, particularly boots, due to pressure on the bump, which was not previously an issue. - There is no pain associated with foot movement. - A possible etiology discussed was a he aled stress fracture leading to extra bone formation. - The patient's brother had a similar co ndition that required a procedure. Vitamin D deficiency: - Laboratory tests performed in May revealed a low vitamin D level. - The patient confirms adherence to [facility] vitamin D supplementation. [facility] Surgical History No pertinent past surgical history Family History Father Diabetes Mother Diabetes Cancer Paternal Grandmother Cancer Social History Housing: House Alcohol intake: current Alcohol intake frequency: a few times a month Patient Tobacco Use Status: Never used Tobacco e-Cigarette/Vaping Use: Never Used Current occupational status: employed Cognitive needs: No Hearing needs: No Vision needs: No Questionnaire Thrive Questionnaire Date Thrive assessed: 09/22/24 I am a: Patient What is your living situation today?: I have a steady place to live Within the past 12 months, did the food you bought not last and you didn't have the money to get more?: Never true Within the past 12 months, did you worry whether your food would run out before you got money to buy more?: Never true Do you have trouble paying for medicines?: No Do you have trouble getting transportation to medical appointments?: No Do you have trouble paying your heating and electricity bill?: No Do you have trouble taking care of your child, family member or friend?: No Do you have trouble with day-to-day activities such as bathing, preparing meals, shopping, managing finances, etc.?: No Are you currently unemployed and looking for a job?: No Are you interested in more education?: Yes Please select the resources that you would like help with: None Currently or been in a relationship where the following occur: No concerns reported THRIVE Score: 0 SAMANTHA-7 AMB Questionnaire SAMANTHA-7 Date SAMANTHA - 7 assessed: 09/26/24 Source: Developed by Drs. Nic Hernandez, Renetta Thomas, Jason Hamilton and colleagues, with an educational yolie from [employer]. Review of Systems Narrative Review of Systems - General: No fever no chills - Neurological: No headaches no dizziness - Ear nose throat: No sore throat no hearing difficulty no ear pain - Cardiovascular: No syncope, no chest pain, no palpitations - Gastrointestinal: No nausea vomiting or diarrhea Physical exam (Primary Care) Vital Signs: Last Vital Signs Pulse 76 07/10/25 15:08 BP 126/74 07/10/25 15:08 Pulse Ox 98 07/10/25 15:08 BMI result Body Mass Index 37.9 Tobacco/Smoking Status: Tobacco use Status Tobacco use date assessed 09/26/24 07/10/25 15:09 Patient Tobacco Use Status Never used Tobacco 07/10/25 15:09 e-Cigarette/Vaping Use Never Used 07/10/25 15:09 Thrive Assessment: Date of Thrive Assessment Date Thrive assessed 09/22/24 07/10/25 15:09 Currently or been in a relationship where the following occur: No concerns reported Narrative Physical Exam General: No acute distress HEENT: No acute findings Neck: Supple Respiratory system: Able to talk in full sentences, no audible wheeze Gastrointestinal: No pain Extremities: Bump on the top of the left foot, painful when wearing tight shoes, Neurovascular intact 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 - A referral will be made for an appointment with a induction coordination power engineer for further evaluation and management. - An influenza vaccine was offered, but the patient declined. Orders: Referrals Podiatry Referral G89.29 - Other chronic pain, M79.672 - Pain in left foot
--- OUTSIDE RECORDS SUMMARY | 2025-07-10 18:47 | XMS_ITS | Patient Health Record ---
Author Organization 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
== END 2025-07-10 15:37 | disposition home or self-care (01) ==
LOC: HO.HMCC 15:05
PROVIDERS: PCP Internal Medicine; Visit Provider Internal Medicine
DX: M79.672 Pain in left foot (principal); G89.29 Other chronic pain

== ENCOUNTER → 2025-07-10 15:32 | Outpatient (BNV) | payer OTHER, SELFPAY | PROVIDERS: PCP Internal Medicine; Visit Provider Radiology Diagnostic Radiology | DX: M79.672 Pain in left foot (principal) | CPT/HCPCS: 73630 ==